=== PATIENT | female | born 1950 | race Caucasian/White ===

== ENCOUNTER 2021-01-28 07:13 | Day surgery (SDC) | payer MEDICARE, OTHER, SELFPAY ==
[2020-12-11 13:36] VITALS: BMI 31.3
--- NOTE | 2021-01-24 09:48 | HO.ANESPROP2 ---
HPI - Anesthesia Eval Consult details Narrative: 70yo F for Colonoscopy PMFSH Past Medical History Medical History History of COVID-19 Hx of Raynaud's syndrome Surgical History Surgical History H/O colonoscopy Social History Social History Alcohol intake: current Patient Tobacco Use Status: Former Tobacco user Use of substances other than those prescribed or required for medical reasons: No Have you been hit, kicked, punched, or otherwise hurt by someone within the past year? If so, by whom?: No Are you DNR?: No Advance Directives Information Provided: No Meds Allergies Allergy/AdvReac Type Severity Reaction Status Date / Time No Known Allergies Allergy Unverified 04/26/20 17:03 [No Known Allergies*] Home Medications Medication Instructions Recorded Confirmed Last Taken Type CoQ-10 1 cap PO DAILY 12/11/20 12/11/20 Unknown History multivitamin 1 tab PO DAILY 12/11/20 12/11/20 Unknown History Exam Exam Date and Time: January 24, 2021 0948 Height,Weight and Vital Signs: Height 5 ft 6 in Weight 87.997 kg Assessment and Plan Assessment Anesthesia Assessment: Chart Reviewed
[2021-01-28 07:30] VITALS: BMI 29.5
[2021-01-28 07:56] VITALS: BP 142/58; PULSE 60; RESP 18; TEMP 36.6; O2SAT 96
[2021-01-28] MEDS: Lactated Ringers 1,000 ML 100 ML IVCONT (08:25)
--- NOTE | 2021-01-28 08:39 | HO.ANESPROP2 ---
[facility] Past Medical History Medical History History of COVID-19 Hx of Raynaud's syndrome Surgical History Surgical History H/O colonoscopy Social History Social History Alcohol intake: current Patient Tobacco Use Status: Former Tobacco user Use of substances other than those prescribed or required for medical reasons: No Have you been hit, kicked, punched, or otherwise hurt by someone within the past year? If so, by whom?: No Are you DNR?: No Advance Directives Information Provided: No Meds Allergies Allergy/AdvReac Type Severity Reaction Status Date / Time No Known Allergies Allergy Unverified 04/26/20 17:03 [No Known Allergies*] Active Medications: Current Medications Generic Name Dose Route Start Last Admin Trade Name Freq PRN Reason Stop Dose Admin Lactated Ringer's 1,000 mls @ 100 mls/hr 01/28/21 06:15 01/28/21 08:25 Lr IVCONT 100 mls/hr .Q10H MELONY Administration Sodium Biphosphate/Sodium Phosphate 133 ml 01/28/21 06:11 Sodium Phosphate,[place]-Dibasic 133 Ml Enema NH ONCE PRN Poor Colonoscopy Prep Results Home Medications Medication Instructions Recorded Confirmed Last Taken Type CoQ-10 1 cap PO DAILY 12/11/20 12/11/20 Unknown History multivitamin 1 tab PO DAILY 12/11/20 12/11/20 Unknown History Exam Exam Date and Time: January 28, 2021 0839 Height,Weight and Vital Signs: Height 5 ft 6 in Weight 83.007 kg Last Vital Signs Temp 97.8 F 01/28/21 07:56 Pulse 60 01/28/21 07:56 Resp 18 01/28/21 07:56 BP 142/58 H 01/28/21 07:56 Pulse Ox 96 01/28/21 07:56 Airway Mallampati Class: I TM Dist: >3cm Neck ROM: Full Loose/Missing/Broken Teeth: No Assessment and Plan Assessment Anesthesia Assessment: Anesthesia Plan Discussed and Chart Reviewed Final Anesthetic Review NPO: Yes ASA Class: II Final Preanesthetic Review: No Changes in Pt Med Stat, Meds/Allgs Chart Reviewed, Consent Obtained/Reviewed and Anes Risks/Benef Reviewed Patient Risk: Low Procedure Risk: Low Anesthetic Plan Anesthetic Plan: MAC: and Agree w/ Assess. and Plan Disposition: Standard PACU
[2021-01-28 09:35] VITALS: BP 98/50; PULSE 61; RESP 20; TEMP 36.6; O2SAT 96
--- NOTE | 2021-01-28 09:40 | P.BOP_ITS ---
Brief Operative Note Date of Service: 01/28/21 Pre-op diagnosis: Screening Post-op diagnosis: other (Colon polyps) Procedure: Colonoscopy to the cecum and TI with snare polypectomy x2, and biopsy/removal of polyp Surgeon: Jose J Kilpatrick Was an Emergency Medical Technician Basic used for this Procedure?: No Estimated blood loss (mL): 3.0 Pathology: other (A. Polyp at 20cm B. Cecal polyp C. Transverse colon polyp) Condition: stable Disposition: PACU
[2021-01-28 10:05] VITALS: BP 125/49; PULSE 50; RESP 20; O2SAT 100
[2021-01-28 10:17] VITALS: PULSE 59; TEMP 36.8
--- NOTE | 2021-01-28 20:07 | OP_ITS ---
SURGEON: Jose J Kilpatrick MD INDICATIONS: The patient presents for evaluation of colorectal cancer screening. Full consent has been obtained from her for this, including risks of bleeding and perforation. PREOPERATIVE DIAGNOSIS: Colorectal cancer screening. POSTOPERATIVE DIAGNOSIS: PROCEDURE PERFORMED: ESTIMATED BLOOD LOSS: COMPLICATIONS: ANESTHESIA: Monitored anesthesia care. ASSISTANTS: SPECIMENS: POSTOPERATIVE DIAGNOSES: Colorectal cancer screening, colon polyps, diverticulosis and internal hemorrhoids. DESCRIPTION OF PROCEDURE: The patient was placed in the left lateral decubitus position. The digital rectal exam revealed no abnormalities. The Olympus video pediatric colonoscope was entered into the rectum and advanced easily to the cecum. Once in the cecum, I did identify normal-appearing cecal pouch with appendiceal orifice and a normal-appearing ileocecal valve, other than an approximately 3 or 4 mm polyp in the cecum, which was biopsied and completely removed with cold biopsy forceps. The terminal ileum was cannulated and appeared normal. The scope was withdrawn back in the colon. The remainder of the cecum appeared normal. The scope was slowly withdrawn assessing all mucosal surfaces carefully. Preparation was excellent. In the transverse colon, was a flat, but raised approximately 10 to 12 mm polyp, which was snared and recovered by suction. The polypectomy site appeared clean, without any sign of residual polyp nor bleeding. At 20 cm, was an approximately 10 mm polyp on a short stalk, which was snared and recovered by suction. The polypectomy site appeared clean, without any sign of residual polyp nor bleeding. I did not visualize any other polyps, colitis, nor angiodysplasia. There was a moderate amount of sigmoid diverticulosis. In the rectum, scope was retroflexed visualizing small internal hemorrhoids, but no other pathology. The rectal mucosa appeared normal. Scope was straightened out and withdrawn from the patient. She tolerated the procedure well and was returned to the recovery area in stable condition. IMPRESSION: 1. Colon polyps, status post snare polypectomy, and biopsy and removal. 2. Diverticulosis. 3. Internal hemorrhoids. PLAN: The results of the pathology will be checked. Given the gross appearance of the larger polyps, I would recommend a repeat colonoscopy in 5 years for further surveillance. She was advised not to use any aspirin and NSAIDs for 1 week. PROCEDURES PERFORMED: Colonoscopy to cecum and terminal ileum with snare polypectomy, and biopsy and removal of polyp. MD PRATIBHA Edwards/NANCY / [id number]
== END 2021-01-28 10:50 | disposition home or self-care (01) ==
PROVIDERS: PCP Internal Medicine Medical Oncology; Visit Provider Internal Medicine
PROC: 0DJD8ZZ Inspection of Lower Intestinal Tract, Via Natural or Artificial Opening Endoscopic (ICD-10-PCS; CPT 45378; principal; 2021-01-28 08:20)
DX: Z12.11 Encounter for screening for malignant neoplasm of colon (principal); D12.0 Benign neoplasm of cecum; D12.5 Benign neoplasm of sigmoid colon; K63.5 Polyp of colon; K57.30 Diverticulosis of large intestine without perforation or abscess without bleeding; K64.8 Other hemorrhoids; Z86.16 Personal history of COVID-19; Z87.891 Personal history of nicotine dependence; Z79.82 Long term (current) use of aspirin
CPT/HCPCS: 45385; 45380; 88305

== ENCOUNTER 2021-02-06 10:20 | Outpatient (REF) | payer MEDICARE, OTHER, SELFPAY ==
[2021-02-06 13:44] LABS: MANUAL DIFF FLAG NO
[2021-02-06 13:57] LABS: Basophils Percent Auto 0.6 % (0-2); Eosinophils Absolute Auto 0.1 X10*3/uL (0.0-0.4); Eosinophils Percent Auto 1.9 % (0-4); Hematocrit 42.7 % (37-47); Hemoglobin 14.1 g/dl (12.0-16.0); Imm Gran Abs Auto 0.03 X10*3/uL (0.00-0.03); Imm Gran Pct Auto 0.5 % (0.0-0.4); Lymphocytes Absolute Auto 3.2 X10*3/uL (1.2-4.9); Lymphocytes Percent Auto 49.1 % (20-40); Mean Corpuscular Hemoglobin 31.4 pg (27.0-33.0); Mean Corpuscular Volume 95.1 fL (80-98); Mean Platelet Volume 11.2 fL (9.4-12.3); Monocytes Absolute Auto 0.5 X10*3/uL (0.1-1.2); Monocytes Percent Auto 7.3 % (2-11); Neutrophils Absolute Auto 2.6 X10*3/uL (2.0-8.3); Neutrophils Percent Auto 40.6 % (45-73); Platelet Count 262 X10*3/uL (160-400); Red Blood Count 4.49 X10*6/uL (4.20-5.50); Red Cell Distribution Width 12.6 % (11.0-16.0); White Blood Count 6.4 X10*3/uL (4.8-10.8)
[2021-02-06 14:36] LABS: Alanine Aminotransferase 39 U/L (0-31); Albumin Level 4.3 g/dL (3.5-5.0); Alkaline Phosphatase 69 U/L (39-117); Anion Gap 13 (12-20); Aspartate Amino Transferase 24 U/L (5-31); Bilirubin Total 1.1 mg/dL (0.0-1.0); Blood Urea Nitrogen 10 mg/dL (9-16); Calcium 9.6 mg/dL (8.4-10.2); Carbon Dioxide 25 mmol/L (22-29); Chloride 106 mmol/L (96-108); Cholesterol 303 mg/dL; Estimated Glomerular Filt Rate > 60; Glucose Fasting 81 mg/dL (60-99); HDL Cholesterol 70 mg/dL; LDL Cholesterol Calculated 192 mg/dl; Potassium 4.3 mmol/L (3.3-5.1); Sodium 140 mmol/L (135-145); Triglycerides 209 mg/dL
== END 2021-02-06 10:21 | disposition home or self-care (01) ==
LOC: HO.10HDL 10:20
PROVIDERS: Visit Provider Internal Medicine Medical Oncology
DX: I73.00 Raynaud's syndrome without gangrene (principal); E78.00 Pure hypercholesterolemia, unspecified; E66.9 Obesity, unspecified
CPT/HCPCS: 36415; 80053; 80061; 85025

== ENCOUNTER 2021-02-12 07:53 | Outpatient (REF) | payer MEDICARE, OTHER, SELFPAY ==
--- NOTE | ~2021-02-12 | MM_ITS ---
EXAMINATION: MM SCREENING DIGITAL BREAST TOMOSYNTHESIS, BILATERAL CLINICAL INFORMATION: Screening. Asymptomatic. The lifetime risk of breast cancer based on the Tyrer-Cuzick Model is 4.1%. COMPARISON: Mammography: April 10, 2018 and studies dating back to September 16, 2010 TECHNIQUE: Digital breast tomosynthesis is performed in both the craniocaudal and mediolateral oblique views along with computer-aided detection (CAD). Synthesized 2D images are generated from the tomosynthesis. FINDINGS: There are scattered areas of fibroglandular density (ACR BI-RADS breast composition Category b). There are no significant masses, abnormal calcifications, or other abnormalities. MM/MM tomosynthesis screening BI IMPRESSION: There are no significant changes from prior study. ASSESSMENT: BI-RADS 1: Negative RECOMMENDATION: Routine annual mammography screening. This patient's information was entered into a reminder system with a target due date for their next mammogram.
== END 2021-02-12 07:54 | disposition home or self-care (01) ==
LOC: HO.MAMMO 07:53
PROVIDERS: Visit Provider Internal Medicine Medical Oncology
DX: Z12.31 Encounter for screening mammogram for malignant neoplasm of breast (principal)
CPT/HCPCS: 77063; 77067

== ENCOUNTER 2022-02-18 09:25 | Outpatient (REF) | payer MEDICARE, SELFPAY ==
--- NOTE | ~2022-02-18 | MM_ITS ---
EXAMINATION: MM SCREENING DIGITAL BREAST TOMOSYNTHESIS, BILATERAL CLINICAL INFORMATION: Screening. Asymptomatic. The lifetime risk of breast cancer based on the Tyrer-Cuzick Model is 3%. COMPARISON: Mammography: 02/12/2021, 07/10/2018, 06/25/2012 TECHNIQUE: Digital breast tomosynthesis is performed in both the craniocaudal and mediolateral oblique views along with computer-aided detection (CAD). Synthesized 2D images are generated from the tomosynthesis. FINDINGS: There are scattered areas of fibroglandular density (ACR BI-RADS breast composition Category b). There are no significant masses, abnormal calcifications, or other abnormalities. Parenchymal pattern is similar to prior studies. The axilla are unremarkable. MM/MM tomosynthesis screening BI IMPRESSION: No mammographic evidence of malignancy. ASSESSMENT: BI-RADS 1: Negative RECOMMENDATION: Routine annual mammography screening. This patient's information was entered into a reminder system with a target due date for their next mammogram.
== END 2022-02-18 09:26 | disposition home or self-care (01) ==
LOC: HO.MAMMO 09:25
PROVIDERS: PCP Internal Medicine Medical Oncology; Visit Provider Internal Medicine Medical Oncology
DX: Z12.31 Encounter for screening mammogram for malignant neoplasm of breast (principal)
CPT/HCPCS: 77063; 77067

== ENCOUNTER 2024-12-10 07:52 | Outpatient (REF) | payer MEDICARE, SELFPAY ==
--- OUTSIDE RECORDS SUMMARY | 2024-12-10 07:54 | XMS_ITS ---
Author Organization Jose J Bowman III, MD Address [address] [place] [address] [place] [address] Care Team Providers Care Yarn Finisher Name Role Phone Jose J Bowman Primary Care Provider REASON FOR VISIT annual exam Encounters Encounter Location Date Provider Diagnosis Jose J Bowman III, MD [address] [place] [address] [place] [address] 10/23/2023 Jose J Bowman Plan Of Treatment Next Appt Details Provider Name:Jose J Bowman, 01/27/2025 02:30:00 PM, [address] [place] [address] [place], [address], Progress Notes * Josette BENJAMIN EDOB:[birth year] (74 yo F)Acc No.[id number]:10/23/2023 Progress Notes Patient:?Josette BENJAMIN Provider:?Jose J Bowman MD :1950???Age:73 Y???Sex:Female D ate:10/23/2023 Address:[address] [place], [place] [id number] Subjective: * Chief Complaints: * ???1. Annual exam. * Medical History:? Objective: * Vitals:? Assessment: Plan: * Treatment: * Images: * The named appointment provid er may or may not be the originator of this progress note, and it is not deemed complete until electronically signed by the appointment provider. Sign off status: Pending * Provider:?Jose J Bowman MD Date:?10/08 Generated for Gregg rivera/Constance/Jonna on:?12/10/2024 07:54 AM EDT
--- OUTSIDE RECORDS SUMMARY | 2024-12-10 07:55 | XMS_ITS | Patient Health Record ---
Author Organization Jose J Bowman III, MD Address [address] [place] [address] [place] [address] Care Team Providers Care It Security Project Manager Name Role Phone Jose J Bowman Primary Care Provider Allergies Allergen (clinical drug ingredient) Drug/Non Drug Allergy documented on EMR Reaction Allergy Type Onset Date Status No Known Drug Allergy Unknown Drug Allergy Active Reason For Referral No Information Medications Medication SIG (Take, Route, Fr equency, Duration) Notes Start Date End Date Status Aspirin 81 81 MG 1 tablet Orally Once a day Active Social History Tobacco Use: Social History Observation Description Date Details (start date - stop date) Former Smoker NA - NA Tobacco Use/Smoking Question Answer Notes Patient is a former smoker How long has it been since you last smoked? > 10 years Additional Findings: Tobacco Non-User Ex-cigaret te smoker Alcohol Screen Question Answer Notes Did you have a drink contain ing alcohol in the past year? Yes How often did you have a dri nk containing alcohol in the past year? 4 or more times a week (4 points) How many drinks did you have on a typical day when you were drinking in the past year? 1 or 2 drinks (0 point) How often did you have 6 or more drinks on one occasion in the past year? Never (0 point) Points 4 Interpretation Positive Problems Problem Type SNOMED Code ICD Code Onset Dates Problem Status W/U Status Risk Notes Problem 4642869 Former smoker (Z87.891) Active confirmed She is highly motivated not to smoke. She has a plan to prevent relapse in times of stress and illness. Problem 36840059 Postmenopausal (Z78.0) Active confirmed A bone density test will be done as part of a comprehensive database. Problem 836288835365039 Obesity (BMI 30.0-34.9) (E66.9) Active confirmed Her body mass index is 31.47 and she has gained 5 pounds. She weighs 195 pounds. We elaborated a plan to lose weight at a rate of one half of a pound per week to a diet restricted in fat calories and sodium combined with physical activity. Problem 554058330 Plantar fasciitis (M72.2) Active confirmed She has a history of plantar fasciitis but it has not bothered her lately. Problem 740474806 Raynauds disease without gangrene (I73.00) Active confirmed Despite any whether she has had no episodes of Raynaud's syndrome lately. Problem 82491124 Hypercholestero lemia (E78.00) Active confirmed Comprehensive blood work including a fasting lipid profile has been ordered to be done in the near future. I recommended a healthy Mediterranean diet and aggressive weight loss with physical activity. Problem 53627296 Vitreous floaters of left eye (H43.392) Active confirmed She will remain under the care of her material disposition inspector at this time. It appears that she has vitreous detachment. Problem [id number] Visual field defect of left eye (H53.40) Active confirmed She describes a black spot in her left visual field. Her description of this was very vague, but it appears to be constant and not 20 clubbing. She describes it as a dark black spot. She will see an material disposition inspector. Encounters Encounter Location Date Provider Diagnosis Jose J Bowman III, MD [address] [place] [address] DR [address] [place] [phone] 09/20/2024 Jose J Bowman Plan Of Treatment Pending Test Test Name Order Date PROFILE, FASTING (COMPREHENSIVE METABOLI C) 07/04/2020 PROFILE, FASTING (COMPREHENSIVE METABOLI C) 08/26/2021 PROFILE, FASTING (COMPREHENSIVE METABOLI C) 06/16/2018 PROFILE, FASTING (COMPREHENSIVE METABOLI C) 10/17/2022 PROFILE, FASTING (COMPREHENSIVE METABOLI C) 10/30/2020 PROFILE, FASTING (COMPREHENSIVE METABOLI C) 01/01/2022 PROFILE, FASTING (COMPREHENSIVE METABOLI C) 06/21/2019 PROFILE, RANDOM (COMPREHENSIVE METABOLIC ) 12/20/2019 LIPID PANEL 06/21/2019 LIPID PANEL 07/04/2020 LIPID PANEL 08/26/2021 LIPID PANEL 06/16/2018 LIPID PANEL 12/20/2019 LIPID PANEL 10/17/2022 LIPID PANEL 10/30/2020 LIPID PANEL 01/01/2022 CBC w DIFF 10/30/2020 CBC w DIFF 01/01/2022 CBC w DIFF 06/21/2019 CBC w DIFF 07/04/2020 CBC w DIFF 08/26/2021 CBC w DIFF 06/16/2018 CBC w DIFF 12/20/2019 CBC w DIFF 10/17/2022 VITAMIN D 25-OH TOTAL 10/17/2022 VITAMIN D 25-OH TOTAL 01/01/2022 Next Appt Details Provider Name:Jose J Bowman, 01/27/2025 02:30:00 PM, [address] [place] [address] , [facility] Manjit, [place], [phone], Insurance Providers Payer Name Payer Address Payer Phone Subscriber Number Group Number Insured Name Patient Relationship to Insured Coverage Start Date Coverage End Date [facility] [address] [facility] [address] [facility] [phone] [id number] Josette Rodriguez i Self - patient is the insured MEDICARE NGS [address] [place] [address] [id number] Josette Rodriguez i Self - patient is the insured Medical (General) History Medical History History ICD Code Raynauds disease without gangrene I73.00 Plantar fasciitis, left M72.2 obesity, BMI 30 , no deliveries last menstrual period age 58 former smoker September 2019 cellulitis left lower extr emity below-knee Surgical History Surgery Date(Month/Year) colonoscopy 2020
--- OUTSIDE RECORDS SUMMARY | 2024-12-10 07:55 | XMS_ITS ---
Author Organization Jose J Bowman III, MD Address [address] [place] [address] Care Team Providers Care Communication Specialist Name Role Phone Jose J Bowman Primary Care Provider Allergies Allergen (clinical drug ingredient) Drug/Non Drug Allergy documented on EMR Reaction Allergy Type Onset Date Status No Known Drug Allergy Unknown Drug Allergy Active REASON FOR VISIT annual exam Medications Medication SIG (Take, Route, Fr equency, [...] Additional Findings: Tobacco Non-User Ex-cigaret te smoker Encounters Encounter Location Date Provider Diagnosis Jose J Bowman III, MD [address] [place] [address] [place] [address] 02/23/2024 Jose J Bowman Annual physical exam Z00.00 Assessments Encounter Date Diagnosis (ICD Code) Assessment Notes Treatment Notes Treatment Clinical Notes 02/23/2024 Annual physical exam (ICD-10 - Z00.00) Plan Of Treatment Medication Medication Name Sig Start Date Stop Date Notes Aspirin 81 81 MG 1 tablet Orally Once a day Next Appt Details Provider Name:Jose J Bowman, 01/27/2025 02:30:00 PM, [address] [place] [address] [place], [address], Progress Notes * Josette BENJAMIN EDOB:[birth year] (74 yo F)Acc No.[id number]:02/23/2024 Progress Notes Patient:?Josette BENJAMIN Provider:?Jose J Bowman MD :1950???Age:73 Y???Sex:Female D ate:02/23/2024 Address:[address] [place] [address] Subjective: * Chief Complaints: * ???1. Annual exam. * HPI: ???COVID-19 Screening:?Questions?Have you had any new onset fever, chills, cough, congestion, sore throat, shortness of breath, muscle aches??No ?Have you been exposed to the virus within the last 10 days??No ?Have you travelled internationally in the last 10 days??No ?Have you been exposed to COVID-19 in the past??No * ROS:?General/Constitutional:?pain?only normal aches and pains.?Chills?denies.?Fatigue?admits.?Fever?denies.?ENT:?Decreased hearing?denies.?Respiratory:?Cough?denies.?Cardiovascular:?Chest pain with exertion?denies.?Dyspnea on exertion?denies.?Shortness of breath?denies.?Gastrointestinal:?Constipation?denies.?Decreased appetite?denies.?Diarrhea?denies.?Heartburn?denies.?Nausea?denies.?Rectal bleeding?denies.?Vomiting?denies.?Hematology:?bruising?denies.?petechiae?denies.?Swollen glands?none have been noted.?Genitourinary:?Frequent urination?denies.?Musculoskeletal:?Muscle aches?denies.?Painful joints?denies.?Sciatica?denies.?Weakness?denies.?Skin:?Itching?denies.?Rash?denies.?Skin lesion(s)?denies.?Neurologic:?Difficulty speaking?denies.?Dizziness?denies.?Headache?denies.?Low back pain?denies.?Psychiatric:?Depressed mood?denies.? * Medical History:?Raynauds di sease without gangrene, Plantar fasciitis, left, obesity, BMI 30, , no deliveries, Last menstrual period age 58, Former smoker, September 2019 cellulitis left lower extremity below-knee. * Surgical History:? , col onoscopy 2020. * Hospitalization/Major Diagno stic Procedure:?Denies Past Hospitalization. * Family History:?Father: dece ased 62 yrs, Prostate cancer, diagnosed with CVD, Cancer.?Mother: 51 yrs, Automobile accident, gastric cancer, emphysema, asthma, diagnosed with Cancer.?3 brother(s) , 1 sister(s) . 5 son(s) , 1 daughter(s) - healthy. .? She has one sister and 3 brothers. One brother has small cell lung cancer. She is not aware of any family history of breast or uterine cancer. He is not aware of any family history of mental illness, substance use disorder or addiction. * Social History:?Tobacco Use:?Tobacco Use/Smoking?Patient is a?former smoker ?How long has it been since you last smoked??> 10 years ?Additional Findings: Tobacco Non-User?Ex-cigarette smoker ???He was born at [facility]. 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 She is a Cheondoism who would refuse blood transfusion. She has been to Dmitriy for 20 years. She has 6 children. He has 4. All of them are healthy and well. * Medications:?Taking Aspirin 81 81 MG Tablet 1 tablet Orally Once a day , Medication List reviewed and reconciled with the patient * Allergies:?No Known Drug All ergy. Objective: * Vitals:? * Examination: ???General Examination: ?GENERAL APPEARANCE:?pleasant, well nourished, well developed, in no acute distress, calm and relaxed.?HEAD:?atraumatic, normocephalic.?EYES:?eomi, perrla, anicteric, conjugate.?EARS:?normal.?NOSE:?septum intact.?ORAL CAVITY:?normal, unremarkable.?NECK/THYROID:?no jugular venous distention, no carotid bruit, thyroid normal.?LYMPH NODES:?no enlarged lymph nodes,spleen normal.?SKIN:?no suspicious lesions, anicteric.?HEART:?no clicks, gallops, murmurs, or rubs, regular rhythm, S1, S2 normal, no s3, or vascular bruits.?LUNGS:?clear to auscultation .?BREASTS:??no masses palpable bilaterally.?ABDOMEN:?bowel sounds normal, no ascites, no organomegaly, no mass.?RECTAL EXAM:?not examined.?MUSCULOSKELETAL:?extremities unremarkable, no clubbing, cyanosis or edema.?PERIPHERAL PULSES:?normal.?NEUROLOGIC:?alert and oriented, cranial nerves 2-12 grossly intact, deep tendon reflexes 2+ symmetrical, motor strength normal upper and lower extremities, sensory exam intact.?PSYCH:?alert, oriented.? Assessment: * Assessment: 1.?Annual physical exam - Z0 0.00??? Plan: * Treatment: * Images: * The named appointment provid er may or may not be the originator of this progress note, and it is not deemed complete until electronically signed by the appointment provider. Sign off status: Pending * Provider:?Jose J Bowman MD Date:?02/07 Generated for Gregg rivera/Constance/Salvadoritting on:?12/10/2024 07:54 AM EDT History and Physical Notes * HPI (History of Present Illness) Category Sub-Category Detail Notes COVID-19 Screening Questions Have you had any new onset fever, chills, cough, congestion, sore throat, shortness of breath, muscle aches?: No Have you been exposed to the virus withi n the last 10 days?: No Have you travelled internationally in [facility] last 10 days?: No Have you been exposed to COVID-19 in the past?: No Examination Category Sub-Category Detail Notes General Examination GENERAL APPEARANCE: pleasant , well nourished, well developed, in no acute distress, calm and relaxed HEAD: atraumatic, normocep halic EYES: eomi, perrla, anicte abhay, conjugate EARS: normal NOSE: septum intact NECK/THYROID: no jugular venous di stention, no carotid bruit, thyroid normal HEART: no clicks, gallops, murmurs, or rubs, regular rhythm, S1, S2 normal, no s3, or vascular bruits LUNGS: clear to auscultatio n ABDOMEN: bowel sounds normal, no ascites, no organomegaly, no mass NEUROLOGIC: alert and oriented, cranial nerves 2-12 grossly intact, deep tendon reflexes 2+ symmetrical, motor strength normal upper and lower extremities, sensory exam intact SKIN: no suspicious lesion s, anicteric PERIPHERAL PULSES: normal BREASTS: no masses palpable b ilaterally MUSCULOSKELETAL: extremities unremark able, no clubbing, cyanosis or edema LYMPH NODES: no enlarged lymph no brea,spleen normal RECTAL EXAM: not examined PSYCH: alert, oriented ORAL CAVITY: normal, unremarkable
--- OUTSIDE RECORDS SUMMARY | 2024-12-10 07:55 | XMS_ITS ---
Author Organization Jose J Bowman III, MD Address [address] [place] [address] Care Team Providers Care Digital Analyst Name Role Phone Jose J Bowman Primary Care Provider [phone] REASON FOR VISIT Needs PE Encounters Encounter Location Date Provider Diagnosis Jose J Bowman III, MD [address] [place] [address] [place] [address] 09/20/2024 Jos eJ Bowman Plan Of Treatment Next Appt Details Provider Name:Jose J Bowman, 01/27/2025 02:30:00 PM, [address] [place] [address] [place], [address], Progress Notes * Josette BENJAMIN EDOB:[birth year] (74 yo F)Acc No.[id number]:09/20/2024 Patient:?Josette BENJAMIN :1950???Age:74 Y???Sex:Female Address:[address] [place] [address], [address] * * Date:?
--- OUTSIDE RECORDS SUMMARY | 2024-12-10 07:55 | XMS_ITS | Patient Health Record ---
Author Organization [facility] Address [address] [place] [id number] Care Team Providers Care Money Position Officer Name Role Phone Jose J Bowman MD Primary Care Provider Jose J Jeffrey Unavailable [phone] Reason For Referral No Information Medications Medication SIG (Take, Route, Frequency, Duration) Notes Start Date End Date Status Aspirin Active Co Q 10 Active Ibuprofen PRN Active Multivitamin Active Immunizations Vaccine Route Administration Date Status Comme nts Influenza Unknown 05/23/2020 Administered Social History Tobacco Use: Social History Observation Description Date Details (start date - stop date) Never Smoker NA - NA Tobacco Use/Smoking Question Answer Notes Patient is a nonsmoker Alcohol Screen Question Answer Notes Did you have a drink contain ing alcohol in the past year? Yes How often did you have a dri nk containing alcohol in the past year? 4 or more times a week (4 points) How many drinks did you have on a typical day when you were drinking in the past year? 3 or 4 drinks (1 point) How often did you have 6 or more drinks on one occasion in the past year? Never (0 point) Points 5 Interpretation Positive Section Notes: Nonsmoker; no sig alcohol Problems Problem Type SNOMED Code ICD Code Onset Dates Problem Status W/U Status Risk Notes Problem 092378747 Encounter for screening for malignant neoplasm of colon (Z12.11) Active confirmed Problem 306369764835954 Preprocedural examination (Z01.818) Active confirmed Problem 878262007 Long-term use of aspirin therapy (Z79.82) Active confirmed Problem Colon, diverticulosis (K57.30) Active confirmed Plan Of Treatment Pending Test Test Name Order Date Pathology 01/28/2021 Future Test Test Name Order Date COLONOSCOPY 11/28/2020 Insurance Providers Payer Name Payer Address Payer Phone Subscriber Number Group Number Insured Name Patient Relationship to Insured Coverage Start Date Coverage End Date [place] [address] [place] [id number] [phone] [id number] MARIA ELENA Meyer CARRIE Self - patient is the insured [facility] [employer] [address] [address] [place] [address] [phone] [id number] MARIA ELENA Meyer CARRIE Self - patient is the insured Medical (General) History Medical History History ICD Code Raynaud's Disease in hands and feet Reports a negative colonoscopy >> 10 yea rs ago COVID 08/2020--mild Denies MA,DM,CVA,Lung disease,renal dise ase Surgical History Surgery Date(Month/Year)
== END 2024-12-10 07:53 | disposition home or self-care (01) ==
LOC: HO.MAMMO 07:52
PROVIDERS: PCP Internal Medicine Medical Oncology; Visit Provider Internal Medicine Medical Oncology
DX: Z12.31 Encounter for screening mammogram for malignant neoplasm of breast (principal)
CPT/HCPCS: 77063; 77067

== ENCOUNTER → 2024-12-10 08:15 | Outpatient (BNV) | payer MEDICARE, SELFPAY | PROVIDERS: PCP Internal Medicine Medical Oncology; Visit Provider Internal Medicine | DX: Z12.31 Encounter for screening mammogram for malignant neoplasm of breast (principal) | CPT/HCPCS: 77063; 77067 ==